=== PATIENT | male | born 1945 | race Caucasian/White ===

== ENCOUNTER 2017-07-06 12:52 | Outpatient (CLI) | payer MEDICARE ==
--- NOTE | 2017-07-06 17:11 | MRI ---
MRI LUMBAR SPINE NONCONTRAST: DATE: 07/06/17 HISTORY: 72-year-old male with low back pain radiating to left lower extremity for [address] Eisenberg notified Dr. Hathaway by telephone of the large left intrapelvic mass. Dr. Hathaway has order ed a MRI of the pelvis with and without contrast for further evaluation. COMPARISON: None. FINDINGS: Within the left pelvic cavity, there is a large mass which is T1 isointense to muscle; and has mixed, heterogeneous T2 signal with hyperintensity, and intermediate intensity similar to bone marrow. It b roadly abuts the medial aspect of the left iliopsoas muscle, and abuts the anterior surface of the le ft S1 sacral ala, and the anterior surface of the left SI joint. It is incompletely imaged, and not e ntirely included in the field of view on this study. It does not appear to invade adjacent bone. There are diffuse senescent marrow changes throughout the lumbar spine and sacrum. There are five non -rib bearing lumbar-type vertebrae. Vertebral body heights are maintained. 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 There is moderate disc space narrowing and disc desiccation throughout all visualized levels of the lumbar spine, lumbosacral junction, and lower thoracic spine. There is a mild right-convex lateral c urvature of the lumbar spine. Conus medullaris terminates at L1. At T12-L1, imaged only on sagittal sequences, there is central and right paracentral focal small disc herniation or disc-osteophyte complex encroaching upon the anterior aspect of the spinal canal. Eval uation is incomplete. T12-L1: Minimal disc bulge. No central stenosis. No high grade neural foraminal stenosis. L1-2: Mild disc bulge. No central stenosis. No significant right neural foraminal stenosis. Mild to moderat e left neural foraminal stenosis. L2-3: Mild diffuse disc bulge. Mild central spinal canal stenosis. Mild thickening of ligamentum flavum and mild to moderate degenerative facet disease. Mild right neural foraminal stenosis and mild to modera te left neural foraminal stenosis. L3-4: Diffuse disc bulge. Mild to moderate ligamentum flavum thickening. Mild left degenerative facet landaverde es. Mild to moderate right degenerative facet changes. Mild central spinal canal stenosis. Mild to mo derate bilateral neural foraminal stenosis. L4-5: Irregularity of end plates on the right side, with mixture of Modic Type I and Modic Type II marrow c hanges. Moderate bilateral degenerative facet changes. Severe right neural foraminal stenosis. Modera te to severe left neural foraminal stenosis. Severe lateral recess stenosis bilaterally. Moderate lig amentum flavum thickening. Moderate to severe central spinal canal stenosis. L5-S1: Severe right degenerative facet disease with hypertrophy and facet joint effusion. Moderate right jessica ral foraminal stenosis. Mild to moderate left neural foraminal stenosis. Moderate lateral recess sten osis bilaterally, left greater than right. Mild to moderate central spinal canal stenosis. IMPRESSION: 1. 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 Recommend further evaluation with MRI of the pel vis with and without contrast. 2. Lumbar spondylosis, with multilevel degenerative disc disease, facet osteoarthrosis, and Baastrup 's disease. 3. Somewhat severe central spinal canal stenosis at L4-5. 4. Multilevel high grade neural foraminal stenosis. CODE CR. KATHIA Acevedo POS: SERGEI
--- NOTE | 2017-07-06 18:37 | MRI ---
MRI OF THE PELVIS WITH AND WITHOUT CONTRAST: Date: 07/06/17 INDICATION: Low back pain. COMPARISON: None. CONTRAST: 14 mL MultiHance. FINDINGS: There is an 8.0 x 8.0 x 12.7 cm heterogeneous T2, T1 hypointense and heterogeneously enhancing mass c entered within the left retroperitoneum, arising posterior to the left psoas musculature. There is ed nigel seen within the left iliopsoas musculature. There is displacement of the left common iliac artery and vein anteriorly and the left internal iliac artery and vein posteriorly. There are collateral ve nous structures seen around the left inguinal region. There is edema involving the left hip adductor musculature. No definite pathologically enlarged lymph nodes are noted. 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 There is a focus of T1 heterogeneity involving the posterior right ilium on image 31 of series 4 that demonstrates no definite appreciable enhancement on the post contrast series. This may reflect a small hemangioma. The left distal ureter is displaced medially fr om the large left retroperitoneal mass. IMPRESSION: 1. Large, heterogeneously enhancing left retroperitoneal mass arising posterior to the left psoas mu sculature displacing the left external iliac and left internal iliac vasculature. There are numerous collateral veins seen surrounding the left inguinal region which may be related to obstruction of the left external iliac vein. 2. Edema within the left hip adductor musculature may be related to the venous obstruction; however, mild strain cannot be entirely excluded. 3. Oncologic surgical consultation is recommended. Differential considerations for the retroperiton eal mass include primary sarcomatous mass of the retroperitoneum, lymphoma, and less likely a maligna nt nerve sheath tumor. Metastatic lesion cannot be entirely excluded. CODE T. POS: TPC
== END 2017-07-06 12:53 | disposition home or self-care (01) ==
LOC: TBSIIMAG 12:52
PROVIDERS: ATTEND Neurological Surgery
DX: R19.00 Intra-abdominal and pelvic swelling, mass and lump, unspecified site (principal); M54.5 Low back pain; R60.0 Localized edema; M47.816 Spondylosis without myelopathy or radiculopathy, lumbar region; M51.36 Other intervertebral disc degeneration, lumbar region; M48.26 Kissing spine, lumbar region
CPT/HCPCS: 72148; 72197